=== PATIENT | female | born 1945 | race Caucasian/White ===

== ENCOUNTER 2017-02-10 18:59 | Emergency (ER) | payer OTHER ==
--- NOTE | 2017-02-10 20:05 | ED ORDER SUMMARY ---
..... Patient: PAULA HERNÁNDEZ OrderSheet VisitID: [id number] [address] [place] [address] 71y, F Registration Date/Time: 02/10/2017 ORDER SHEET Weight: 80.7 kg (stated) Allergies: seasonal allergies GENERAL ORDERS: HIV I and II (w/reflex) Urgent (19:35 02/10/2017 JDeElena R.N. per protocol) (Ack 19:42 AMcQuoid ER Tech1) (19:56 JDeElena R.N.) HepBSAB Urgent (19:36 02/10/2017 JDeElena R.N. per protocol) (Ack 19:42 AMcQuoid ER Tech1) (19:56 JDeElena R.N.) HepCAB Urgent (19:36 02/10/2017 JDeElena R.N. per protocol) (Ack 19:42 AMcQuoid ER Tech1) (19:56 JDeElena R.N.) SGPT Urgent (19:36 02/10/2017 JDeElena R.N. per protocol) (Ack 19:42 AMcQuoid ER Tech1) (19:56 JDeElena R.N.) MEDICATION ORDERS: IV FLUIDS: ORDER SHEET NOTES: [Electronically signed by Rakesh Garcia R.N. (20:13 02/10/2017)] [Electronically signed by Tanna Rdz (21:47 02/10/2017)] [Electronically locked/signed by Rakesh Garcia R.N. (20:13 02/10/2017)]
--- NOTE | 2017-02-10 20:05 | ED NURSING NOTES ---
Clinical Report - Nurses [facility] [address] [place] [address] 02/10/2017 19:11 Patient: ANNELIESE HERNÁNDEZ TRIAGE Triage time 19:22. Acuity: LEVEL 4. Chief Complaint: (Anneliese was changing the biohazard bin and delivering them to the basement. When she removed her glove she noted blood to her L pointer finger. She is unsure how she injured her finger. She says it looks like a pin prick. Entire event occurred about 1845 on 02/10/17.). 19:28 02/10/17. Alert. No acute distress. SEPSIS SCREEN: Sepsis Screen: negative. --19:28 Rakesh Garcia R.N. 19:22 02/10/17. BP: 179/83 (regular adult cuff) taken on the left arm, via an automated monitor, while sitting. HR: 70 (normal rate). RR: 14 (regular, unlabored and normal). O2 saturation: 93% on room air. Temp: 98 F (oral). Pain level now: 0/10. --19:28 Rakesh Garcia R.N. Weight: 80.7 kg stated. Height/Length: 65 inches Per Patient. BMI: 29.6. --19:23 Rakesh Garcia R.N. Medications Naproxen Oral. --19:23 Rakesh Garcia R.N. Levothyroxine Sodium Oral. --19:23 Rakesh Garcia R.N. MetFORMIN HCl Oral. --19:23 Rakesh Garcia R.N. Medication/allergy information source: the patient. --19:28 Rakesh Garcia R.N. Allergies seasonal allergies. --19:24 Rakesh Garcia R.N. History Arrived by private vehicle. Historian: patient. Unaccompanied. Primary physician (Dr. Gandhi). This started last night. PAST MEDICAL HX: Immunizations: up-to-date. The patient has had a hysterectomy. SOCIAL HX: Never smoker. Occasional alcohol use. No drug use. She has not traveled outside the [place] The patient was not exposed to MRSA. No infectious disease exposure. ABUSE ASSESSMENT: Abuse assessment: The patient was asked "Do you feel safe in your home?" and "Has anyone hurt you or threatened to hurt you?". No report of abuse. SELF HARM ASSESSMENT: A self harm assessment was performed. The patient answered "no" to the question "Do you have thoughts of harming or killing yourself?" and "Have you recently had thoughts about harming or killing others?". FALL RISK ASSESSMENT: Fall risk assessment completed. No fall risk identified. NUTRITIONAL RISK ASSESSMENT: The nutritional risk assessment revealed no deficiencies. LEARNING NEEDS ASSESSMENT: The learning needs assessment revealed no barriers. FUNCTIONAL ASSESSMENT: Functional assessment performed: independent with the activities of daily living; wears glasses- this visual impairment is an ongoing problem. SKIN INTEGRITY ASSESSMENT: Skin integrity risk assessment completed. No skin integrity risk identified. --19:28 Rakesh Garcia R.N. 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 --19:36 Rakesh Garcia R.N. PROBLEMS: Hypothyroidism. Diabetes Mellitus. --19:24 Rakesh Garcia R.N. ADDITIONAL SURGERIES: Carpal Tunnel Surgery. Hysterectomy. Rotator Cuff Surgery. --19:25 Rakesh Garcia R.N. Assessment GENERAL / NEURO / PSYCH: Alert. Oriented X 4. Appears in no acute distress. [place] Coma Scale: 15- eyes open spontaneously (4); best verbal response- oriented x 4 (5); best motor response- obeys commands (6). Patient appears calm and cooperative. RESPIRATORY: Respirations not labored. SKIN: Skin is warm and dry. --19:28 Rakesh Garcia R.N. Interventions ID band on patient. To waiting room. --19:28 Rakesh Garcia R.N. PHYSICAL ASSESSMENT GENERAL / NEURO / PSYCH: Alert. Oriented X 4. Appears in no acute distress. RESPIRATORY: No respiratory distress. Respirations not labored. CVS: Pulses: right radial 2+ and left radial 2+. Capillary refill less than 2 seconds. EXTREMITIES: ( Pinpoint spot with dried blood noted to L index finger pad. No active bleeding at this time.). SKIN: Skin is warm and dry. --19:29 Rakesh Garcia R.N. NURSING PROGRESS NOTES The initial plan of care for this patient has been created This plan of care was discussed with the patient. Reassurance given to the patient. Two patient identifiers checked. Call light placed in reach. Side rails up x 1. Bed placed in lowest position. Brakes of bed on. Patient ready for evaluation- ED physician and PUFF IRON OPERATOR notified. --19:28 Rakesh Garcia R.N. 19:36 02/10/17. BP: 155/75 (regular adult cuff) taken on the left arm, via an automated monitor, while sitting. --19:37 Rakesh Garcia R.N. Patient ID band checked for patient name and birthdate: patient confirmed. Blood samples drawn from the right antecubital space with Vacutainer and 21g butterfly by nurse per protocol ; labeled in presence of the patient and sent to lab: [facility]aff[facility]. --19:56 Rakesh Garcia R.N. DISPOSITION / DISCHARGE Departure time: 20:11. Condition at departure: stable. The goals identified in the patient's plan of care were met. No learning barriers present. Discharge instructions provided and reviewed with the patient. Patient verbalized understanding. Written instructions provided in [place]an. ( Anneliese verbalizes understanding of all d/c instructions including need to f/u with PCP. Reviewed need for f/u with employee health RN. She has no questions and voices no concerns at this time. Gave bandaids on d/c.). The patient was discharged by the nurse practitioner. She was discharged home and unaccompanied at time of discharge. She left the Emergency Department ambulatory and via private vehicle. Patient driving. SIMON COMA SCORE: [place] Coma Scale: 15- eyes open spontaneously (4); best verbal response- oriented x 4 (5); best motor response- obeys commands (6). --20:11 Rakesh Garcia R.N. 20:10 02/10/17. BP: 168/80 (regular adult cuff) taken on the left arm, via an automated monitor, while sitting. HR: 70 (normal rate). RR: 14 (regular, unlabored and normal). O2 saturation: 92% on room air. Temp: 97.9 F (oral). Pain level now: 0/10. --20:11 Rakesh Garcia R.N. Locked/Released at 02/10/2017 20:13 by Rakesh Garcia R.N.
--- NOTE | 2017-02-10 20:05 | ED CLINICAL REPORT ---
Clinical Report - Physicians/Mid Levels [facility] [address] [place] [address] 02/10/2017 19:11 Patient: PAULA HERNÁNDEZ Time Seen: 19:49; initial patient contact, initial documentation, patient care assumed. Arrived- By private vehicle. Historian- patient. HISTORY OF PRESENT ILLNESS Chief Complaint: Injury to the left index finger. The injury happened just prior to arrival. The patient sustained a puncture wound from glass. (think it was glass, was emptying biohazard bin, and what goes in there is mainly glass, no needles). Occurred at work. Patient is not experiencing pain. Patient denies injury to the head or neck. No other injury. REVIEW OF SYSTEMS No swelling, tingling, numbness, weakness or foreign body. No skin laceration. All systems otherwise negative, except as recorded above. PAST HISTORY See nurses notes. PROBLEMS: Hypothyroidism. Diabetes Mellitus. --19:24 Rakesh Garcia R.N. ADDITIONAL SURGERIES: Carpal Tunnel Surgery. Hysterectomy. Rotator Cuff Surgery. --19:25 Rakesh Garcia R.N. The patient's dominant hand is the right. Tetanus immunization status is up-to-date. SOCIAL HISTORY Never smoker. Occasional alcohol use. No drug use. No recent travel. Is a local resident. FAMILY HISTORY No significant family medical history. ADDITIONAL NOTES The nursing notes have been reviewed with agreement regarding the chief complaint, HPI, ROS, PMH and patient medications and allergies. PHYSICAL EXAM Vital Signs: 02/10/2017 19:22 BP: 179/83. HR: 70. RR: 14. O2 saturation: 93%. Temp: 98 F. Pain level now: 0/10. Have been reviewed as normal and appear to be correct. Appearance: Alert. Oriented X3. No acute distress. Head: Head atraumatic. Eyes: Pupils equal, round and reactive to light. Eyes normal inspection. Respiratory: No respiratory distress. Skin: Skin warm and dry. Skin intact. Extremities: Hand injury present. Tip of left index finger: single puncture wound. No erythema, tenderness, swelling, laceration of tip of left index finger or foreign body. No subungual hematoma, nail avulsion, exposed bone or loss of the nail bed on the left index finger or tip amputation of the left index finger. No wrist injury. Hand and wrist exam otherwise negative. Extremities otherwise negative. Neuro, Vascular and Tendons: Vascular status intact. Sensation intact. Motor intact. Tendon function intact. Neuro: Oriented X 3. No motor deficit. No sensory deficit. Note: isolated injury to finger. LABS, X-RAYS, AND EKG Laboratory Tests: Normal. [id number]: (TOMMY: 02/10/2017 19:49) ( [facility] [place] 20:33) Final results Test Result Flag Units (Reference) HIV-1 P24 ANTIGEN NEGATIVE (NEGATIVE) HIV-1 AND OR HIV-2 ANTIBODY NEGATIVE (NEGATIVE) [id number]: (TOMMY: 02/10/2017 19:49) ( [facility] [place]/10[place] 20:29) Final results Test Result Flag Units (Reference) ALT (SGPT) 37 U/L (12-78) . PROGRESS AND PROCEDURES Course of Care: agreed er would call her if any labs were abnormal 20:05 02/10/17. L&I paperwork completed 21:46 02/10/17. called pt to inform her of lab results. Patient counseled in person regarding the patient's stable condition and diagnosis. Differential Diagnosis: Other possible considerations: pw, possible blood exposure. Above considerations are based on history, physical exam and laboratory data. Differential diagnosis was discussed with patient. Disposition: Discharged home in good and improved condition (20:05). Condition: good and stable. CLINICAL IMPRESSION Single superficial puncture wound to the left index finger. No puncture wound with foreign body present or infected puncture wound. Not penetrating into body cavity. Treatment of puncture wound not delayed. INSTRUCTIONS Protect wound and keep wound area clean. Soak in warm soapy water twice daily. Apply bacitracin twice daily. Warnings: GENERAL WARNINGS: Return or contact your physician immediately if your condition worsens or changes unexpectedly, if not improving as expected, or if other problems arise. Specifically return if problem worsens. Follow-up: Follow up with your doctor in about three days as needed. Call for an appointment. Summary of care provided to patient. Understanding of the discharge instructions verbalized by patient. (Electronically signed by Tanna Rdz A.R.N.P. 02/10/2017 21:47)
--- NOTE | 2017-02-10 20:05 | ED ORDER SUMMARY ---
..... Patient: PAULA HERNÁNDEZ OrderSheet [facility] VisitID: [id number] [address] [place] [address] 71y, F Registration Date/Time: 02/10/2017 ORDER SHEET Weight: 80.7 kg (stated) Allergies: seasonal allergies GENERAL ORDERS: HIV I and II (w/reflex) Urgent (19:35 02/10/2017 JDeElena R.N. per protocol) (Ack 19:42 AMcQuoid ER Tech1) (19:56 JDeElena R.N.) HepBSAB Urgent (19:36 02/10/2017 JDeElena R.N. per protocol) (Ack 19:42 AMcQuoid ER Tech1) (19:56 JDeElena R.N.) HepCAB Urgent (19:36 02/10/2017 JDeElena R.N. per protocol) (Ack 19:42 AMcQuoid ER Tech1) (19:56 JDeElena R.N.) SGPT Urgent (19:36 02/10/2017 JDeElena R.N. per protocol) (Ack 19:42 AMcQuoid ER Tech1) (19:56 JDeElena R.N.) MEDICATION ORDERS: IV FLUIDS: ORDER SHEET NOTES: [Electronically signed by Rakesh Garcia R.N. (20:13 02/10/2017)] [Electronically signed by Tanna Rdz (21:47 02/10/2017)] [Electronically locked/signed by Rakesh Garcia R.N. (20:13 02/10/2017)]
--- NOTE | 2017-02-10 20:05 | ED CLINICAL REPORT ---
Clinical Report - Physicians/Mid Levels [facility] [address] [place] [address] 02/10/2017 19:11 Patient: PAULA HERNÁNDEZ Time Seen: 19:49; initial patient contact, initial documentation, patient care assumed. Arrived- By private vehicle. Historian- patient. HISTORY OF PRESENT ILLNESS Chief Complaint: Injury to the left index finger. The injury happened just prior to arrival. The patient sustained a puncture wound from glass. (think it was glass, was emptying biohazard bin, and what goes in there is mainly glass, no needles). Occurred at work. Patient is not experiencing pain. Patient denies injury to the head or neck. No other injury. REVIEW OF SYSTEMS No swelling, tingling, numbness, weakness or foreign body. No skin laceration. All systems otherwise negative, except as recorded above. PAST HISTORY See nurses notes. PROBLEMS: Hypothyroidism. Diabetes Mellitus. --19:24 Rakesh Garcia R.N. ADDITIONAL SURGERIES: Carpal Tunnel Surgery. Hysterectomy. Rotator Cuff Surgery. --19:25 Rakesh Garcia R.N. The patient's dominant hand is the right. Tetanus immunization status is up-to-date. SOCIAL HISTORY Never smoker. Occasional alcohol use. No drug use. No recent travel. Is a local resident. FAMILY HISTORY No significant family medical history. ADDITIONAL NOTES The nursing notes have been reviewed with agreement regarding the chief complaint, HPI, ROS, PMH and patient medications and allergies. PHYSICAL EXAM Vital Signs: 02/10/2017 19:22 BP: 179/83. HR: 70. RR: 14. O2 saturation: 93%. Temp: 98 F. Pain level now: 0/10. Have been reviewed as normal and appear to be correct. Appearance: Alert. Oriented X3. No acute distress. Head: Head atraumatic. Eyes: Pupils equal, round and reactive to light. Eyes normal inspection. Respiratory: No respiratory distress. Skin: Skin warm and dry. Skin intact. Extremities: Hand injury present. Tip of left index finger: single puncture wound. No erythema, tenderness, swelling, laceration of tip of left index finger or foreign body. No subungual hematoma, nail avulsion, exposed bone or loss of the nail bed on the left index finger or tip amputation of the left index finger. No wrist injury. Hand and wrist exam otherwise negative. Extremities otherwise negative. Neuro, Vascular and Tendons: Vascular status intact. Sensation intact. Motor intact. Tendon function intact. Neuro: Oriented X 3. No motor deficit. No sensory deficit. Note: isolated injury to finger. LABS, X-RAYS, AND EKG Laboratory Tests: Normal. [id number]: (TOMMY: 02/10/2017 19:49) ( [facility] [place] 20:33) Final results Test Result Flag Units (Reference) HIV-1 P24 ANTIGEN NEGATIVE (NEGATIVE) HIV-1 AND OR HIV-2 ANTIBODY NEGATIVE (NEGATIVE) [id number]: (TOMMY: 02/10/2017 19:49) ( [facility] [place] 02/10/2017 20:29) Final results Test Result Flag Units (Reference) ALT (SGPT) 37 U/L (12-78) . PROGRESS AND PROCEDURES Course of Care: agreed er would call her if any labs were abnormal 20:05 02/10/17. L&I paperwork completed 21:46 02/10/17. called pt to inform her of lab results. Patient counseled in person regarding the patient's stable condition and diagnosis. Differential Diagnosis: Other possible considerations: pw, possible blood exposure. Above considerations are based on history, physical exam and laboratory data. Differential diagnosis was discussed with patient. Disposition: Discharged home in good and improved condition (20:05). Condition: good and stable. CLINICAL IMPRESSION Single superficial puncture wound to the left index finger. No puncture wound with foreign body present or infected puncture wound. Not penetrating into body cavity. Treatment of puncture wound not delayed. INSTRUCTIONS Protect wound and keep wound area clean. Soak in warm soapy water twice daily. Apply bacitracin twice daily. Warnings: GENERAL WARNINGS: Return or contact your physician immediately if your condition worsens or changes unexpectedly, if not improving as expected, or if other problems arise. Specifically return if problem worsens. Follow-up: Follow up with your doctor in about three days as needed. Call for an appointment. Summary of care provided to patient. Understanding of the discharge instructions verbalized by patient. (Electronically signed by Tanna Rdz A.R.N.P. 02/10/2017 21:47)
--- NOTE | 2017-02-10 21:47 | ED MAR SUMMARY ---
..... Medication Administration Record [facility] [address] [place], [place] [id number] Patient: PAULA HERNÁNDEZ Visit ID: [id number] 71y, F Weight: 80.7 kg Height/Length: 65 in BMI: 29.6 ALLERGIES: seasonal allergies
--- NOTE | 2017-02-10 21:47 | ED DISCHARGE INSTRUCTIONS ---
Patient: PAULA HERNÁNDEZ General Instructions [facility] VisitID: [id number] [address] [place] [address] 71y, F Registration Date/Time: 02/10/2017 Single superficial puncture wound to the left index finger. No puncture wound with foreign body present or infected puncture wound. Not penetrating into body cavity. Treatment of puncture wound not delayed. INSTRUCTIONS Protect wound and keep wound area clean. Soak in warm soapy water twice daily. Apply bacitracin twice daily. Warnings: GENERAL WARNINGS: Return or contact your physician immediately if your condition worsens or changes unexpectedly, if not improving as expected, or if other problems arise. Specifically return if problem worsens. Follow-up: Follow up with your doctor in about three days as needed. Call for an appointment. Summary of care provided to patient. Understanding of the discharge instructions verbalized by patient. ADDITIONAL INFORMATION Puncture Wound (General) A puncture wound is a hole through the skin. Bacteria, dirt and debris can be drawn into this wound, increasing the risk of infection. However, antibiotics are usually not prescribed for this injury unless signs of infection are already present. Therefore, it is important to observe the wound closely for the signs of infection listed below. Home Care: If your wound is on an arm, hand, leg, or foot, keep that part raised during the first 48 hours to reduce swelling and pain. Keep the wound clean and dry. If a bandage was applied and it becomes wet or dirty, replace it. Otherwise, leave it in place for the next 24 hours. You may use acetaminophen (Tylenol) or ibuprofen (Motrin, Advil) to control pain, unless another medicine was prescribed. [NOTE: If you have chronic liver or kidney disease or ever had a stomach ulcer or GI bleeding, talk with your doctor before using these medicines.] You may shower as usual. However, do not soak the area in water (no baths or swimming) during the first 48 hours. Follow Up: Most puncture wounds heal within 10 days. However, an infection may sometimes occur despite proper treatment. If small particles were drawn into the puncture wound (such as fragments of cloth, rubber, wood or dirt), an infection may occur. These fragments are very hard to find during the first exam since it is not possible to get a good look inside a puncture wound and they do not show on an X-ray. Antibiotics and a minor surgical procedure to find and remove the foreign object will be needed if this happens. Therefore, check the wound daily for the warning signs listed below. Get Prompt Medical Attention if any of the following occur: SIGNS OF INFECTION: Increasing pain in the wound Redness, swelling, pus or red lines coming from the wound Fever of 100.4F (38C) or higher, or as directed by your healthcare provider You have been given the following additional information: Puncture Wound, General (Electronically signed by Tanna Rdz A.R.N.P. 02/10/2017 21:47)
--- NOTE | 2017-02-10 21:47 | ED MED RECONCILIATION SUMMARY ---
Patient: PAULA HERNÁNDEZ Medication Reconciliation Report [facility] VisitID: [id number] [address] [place] [address] 71y, F Registration Date/Time: 02/10/2017 Weight: 80.7 kg Height/Length: 65 in. BMI: 29.6 ALLERGIES: seasonal allergies The patient's Home Medications are listed below: THE FOLLOWING MEDICATIONS NEED TO BE RECONCILED: Levothyroxine Sodium Oral MetFORMIN HCl Oral Naproxen Oral The source(s) of the original Home Medication information: patient The following Medications were given to the patient in the Emergency Department: None. The following Medications were prescribed to the patient: None.
--- NOTE | 2017-02-10 21:47 | ED MAR SUMMARY ---
..... Medication Administration Record [facility] [address] [place], [place] [id number] Patient: PAULA HERNÁNDEZ Visit ID: [id number] 71y, F Weight: 80.7 kg Height/Length: 65 in BMI: 29.6 ALLERGIES: seasonal allergies
--- NOTE | 2017-02-10 21:47 | ED MED RECONCILIATION SUMMARY ---
Patient: PAULA HERNÁNDEZ Medication Reconciliation Report [facility] VisitID: [id number] [address] [place] [address] 71y, F Registration Date/Time: 02/10/2017 Weight: 80.7 kg Height/Length: 65 in. BMI: 29.6 ALLERGIES: seasonal allergies The patient's Home Medications are listed below: THE FOLLOWING MEDICATIONS NEED TO BE RECONCILED: Levothyroxine Sodium Oral MetFORMIN HCl Oral Naproxen Oral The source(s) of the original Home Medication information: patient The following Medications were given to the patient in the Emergency Department: None. The following Medications were prescribed to the patient: None.
== END 2017-02-10 20:12 | disposition home or self-care (01) ==
LOC: ED SRH 18:59
DX: S61.231A Puncture wound without foreign body of left index finger without damage to nail, initial encounter (principal); W25.XXXA Contact with sharp glass, initial encounter; Y93.89 Activity, other specified; Y92.238 Other place in hospital as the place of occurrence of the external cause; Y99.0 Civilian activity done for income or pay; E11.9 Type 2 diabetes mellitus without complications; E03.9 Hypothyroidism, unspecified; Z79.84 Long term (current) use of oral hypoglycemic drugs
CPT/HCPCS: 90073; 90075; 90077; 90078; 90364; 92800; 92863; 99777